=== PATIENT | male | born 1945 | race Caucasian/White ===

== ENCOUNTER → 2018-03-12 | Outpatient (CLI) | payer MEDICARE ==
[~2018-03-12] VITALS: Ht 175.3 cm; Wt 76.7 kg
[~2018-03-12] MED LIST: ACET-66 PO; AMLO5TAB2 PO; ASPI-891 PO; CLEARLAX PO; COQ10 PO; CYCL10TA7 PO; FERR324T4 PO; FISH1CAP63 PO; FLUTICASON PROP NASAL; HYDR-4064 PO; LEVO88TA7 PO; LORA10TA7 PO; MAGN400C PO; MAGNESIUM PO; METO25TA6 PO; MULTIVITAMIN PO; NITR0.4T50 SL; NORT25CA3 PO; OMEG1CAP67 PO; OMEP20TA25 PO; RANO500T2 PO; REGADENOSON 0.4 MG/5 ML PF SYG IVP SCH; SIMV80TA7 PO; TERA2CAP4 PO
== END | disposition home or self-care (01) ==
LOC: SHCH 08:08
PROVIDERS: ATTEND Internal Medicine Cardiovascular Disease
DX: R07.9 Chest pain, unspecified (principal); Z95.1 Presence of aortocoronary bypass graft
CPT/HCPCS: 78452; 93017; 96374; A9500 ×2; J2785

== ENCOUNTER 2018-03-19 05:39 | Inpatient (IN) | payer MEDICARE ==
[2018-03-15 10:30] VITALS: BP 118/74
[2018-03-15 10:33] LABS: BASOPHILS % (AUTO) 0.3 % (0.0-5.0); EOSINOPHILS % (AUTO) 2.5 % (0.0-8.0); HEMATOCRIT 39.6 % (42-54); LYMPHOCYTES % (AUTO) 16.1 % (21.0-51.0); MEAN CORPUSCULAR HEMOGLOBIN 32.5 pg (27.0-33.0); MEAN CORPUSCULAR HGB CONC 34.4 g/dL (32.0-36.0); MEAN CORPUSCULAR VOLUME 94.5 fL (79-99); NEUTROPHILS % (AUTO) 73.1 % (40.0-77.0); PLATELET COUNT (AUTO) 279 K/uL (130-400); RED CELL DISTRIBUTION WIDTH 13.1 % (11.0-15.5); WHITE BLOOD COUNT (AUTO) 7.1 K/uL (4.8-10.8)
[2018-03-15 10:43] LABS: CREATININE 1.2 mg/dL (0.5-1.5); POTASSIUM 4.8 mmol/L (3.5-5.1)
[2018-03-16] MEDS: CLINDAMYCIN 900 MG/D5% WATER 50 ML IV SCH (12:45)
[2018-03-19] VITALS (22 sets, daily range): BP systolic 81–114; BP diastolic 46–72
[~2018-03-19] VITALS: Ht 172.7 cm; Wt 76.3 kg
[~2018-03-19 05:39] MED LIST changes: -FISH1CAP63 PO; -MAGN400C PO; -REGADENOSON 0.4 MG/5 ML PF SYG IVP SCH
[2018-03-19] MEDS: CLINDAMYCIN 900 MG/D5% WATER 50 ML IV SCH ×2 (06:00→07:43)
[2018-03-19] MEDS ORDERED: LACTATED RINGERS 1000ML 1,000 ML IV ONE (06:24)
[2018-03-19] MEDS ORDERED: DURAMORPH PF1 MG/ML 10ML AMP IV ONE (06:33)
[2018-03-19] MEDS ORDERED: THROMBIN-JMI 20000 UNIT KIT TP ONE (06:34)
[2018-03-19] MEDS ORDERED: BACITRACIN 50,000 UNIT VIAL ONE (06:34)
[2018-03-19] MEDS ORDERED: BUPIVACAINE/PF 0.25% 30ML VIAL IJ ONE (06:50)
[2018-03-19] MEDS ORDERED: EPINEPHRINE 1 MG/ML AMPULE ONE (06:50)
[2018-03-19] MEDS ORDERED: NEOSTIGMINE 5MG/5ML SYR IV ONE (07:01)
[2018-03-19] MEDS ORDERED: ONDANSETRON HCL 4 MG/2 ML VIAL ONE ×2 (07:01→08:42)
[2018-03-19] MEDS ORDERED: DEXAMETHASONE SOD PHOSPHATE 10MG/ML 1ML VIAL ONE ×2 (07:01→08:42)
[2018-03-19] MEDS ORDERED: GLYCOPYRROLATE 0.2 MG/ML 5 ML VIAL ONE (07:01)
[2018-03-19] MEDS ORDERED: LIDOCAINE PF 2% 5ML ABBOJECT ONE (07:01)
[2018-03-19] MEDS ORDERED: PROPOFOL 10 MG/ML 20ML VIAL IV ONE (07:03)
[2018-03-19] MEDS ORDERED: MIDAZOLAM HCL 1 MG/ML 2ML VIAL ONE (07:03)
[2018-03-19] MEDS ORDERED: FENTANYL CITRATE PF 50 MCG/1 ML 2ML VIAL ONE ×2 (07:04→11:47)
[2018-03-19] MEDS ORDERED: MAGN400C PO (07:16)
[2018-03-19] MEDS ORDERED: SUB TO ALBUTEROL 2.5MG/3ML NEBULES PER P&T IH ONE (08:08)
[2018-03-19] MEDS ORDERED: PHENYLEPHRINE HCL 10 MG/ML 1ML VIAL IV ONE (08:11)
[2018-03-19] MEDS ORDERED: ROCURONIUM BROMIDE 10MG/1ML 5ML VL ONE (08:36)
[2018-03-19] MEDS ORDERED: SUCCINYLCHOLINE CHLORIDE 20 MG/ML 10 ML VIAL ONE (08:36)
[2018-03-19] MEDS ORDERED: METOCLOPRAMIDE 10 MG/2 ML VIAL ONE (08:41)
[2018-03-19] MEDS ORDERED: LIDOCAINE HCL 4% LTA SOL 4 ML VIAL ONE (08:42)
[2018-03-19] MEDS ORDERED: EPHEDRINE SULFATE 50 MG/ML AMPULE ONE ×3 (08:44→14:07)
[2018-03-19] MEDS ORDERED: ARTIFICIAL TEARS 3.5 GM OINTMENT ONE (08:48)
[2018-03-19] MEDS ORDERED: LIDOCAINE HCL 2% JELLY 5 ML ONE (08:48)
[2018-03-19] MEDS ORDERED: GENTAMICIN SULFATE 80 MG/2 ML VIAL ONE (10:39)
[2018-03-19] MEDS: DEXAMETHASONE SOD PHOSPHATE 4 MG/ML 1ML VIAL IVP SCH ×3 (12:45→23:44)
[2018-03-19] MEDS ORDERED: HYDROCODONE/ACETAMINOPHEN 5/325 MG TAB PO PRN (12:45)
[2018-03-19] MEDS ORDERED: PROMETHAZINE HCL 25 MG/ML 1ML AMPULE IM PRN (12:45)
[2018-03-19] MEDS ORDERED: NITROGLYCERIN 0.4 MG SL TAB SL PRN (12:45)
[2018-03-19] MEDS ORDERED: CLINDAMYCIN 900 MG/D5% WATER 50 ML IV SCH (12:45)
[2018-03-19] MEDS ORDERED: MORPHINE SULFATE 2 MG/ML 1ML SYG IVP PRN (12:45)
[2018-03-19] MEDS ORDERED: SODIUM CHLORIDE 0.9% 10 ML VIAL IVP PRN (12:45)
[2018-03-19] MEDS: FERROUS SULFATE 325 MG TABLET.DR PO SCH ×2 (14:00→20:22)
[2018-03-19] MEDS: HYDROCODONE/ACETAMINOPHEN 7.5/325 MG TAB PO SCH ×2 (14:00→20:21)
[2018-03-19] MEDS: LACTATED RINGERS 1000ML 1,000 ML IV SCH (15:00)
[2018-03-19] MEDS ORDERED: CLINDAMYCIN 900 MG/D5% WATER 50 ML IV ONE (18:00)
[2018-03-19] MEDS: RANOLAZINE 500 MG TAB.SR.12H PO SCH (20:21)
[2018-03-19] MEDS: CYCLOBENZAPRINE HCL 10 MG TABLET PO SCH (20:21)
[2018-03-19] MEDS: ACETAMINOPHEN EXTRA STRENGTH 500 MG TABLET PO SCH (20:22)
[2018-03-19] MEDS: MAGNESIUM OXIDE 400 MG TABLET PO SCH (20:22)
[2018-03-19] MEDS: METOPROLOL TARTRATE 25 MG TAB PO SCH (20:25)
[2018-03-19] MEDS ORDERED: ATORVASTATIN CALCIUM 40 MG TABLET PO SCH (21:00)
[2018-03-19] MEDS ORDERED: NORTRIPTYLINE HCL 25 MG CAPSULE PO SCH (21:00)
[2018-03-19] MEDS ORDERED: TERAZOSIN HCL 2 MG CAPSULE PO SCH (21:00)
[2018-03-20 00:41] VITALS: BP 121/66
[2018-03-20] MEDS: LACTATED RINGERS 1000ML 1,000 ML IV SCH (01:53)
[2018-03-20 04:00] VITALS: BP 111/55
[2018-03-20] MEDS ORDERED: LEVOTHYROXINE 88 MCG TABLET PO SCH (06:30)
[2018-03-20 08:54] VITALS: BP 116/68
[2018-03-20] MEDS ORDERED: PANTOPRAZOLE SODIUM 40 MG TABLET.DR PO SCH (09:00)
[2018-03-20] MEDS ORDERED: CLEARLAX PO SCH (09:00)
[2018-03-20] MEDS: ACETAMINOPHEN EXTRA STRENGTH 500 MG TABLET PO SCH (09:00)
[2018-03-20] MEDS ORDERED: MULTIVITAMIN TABLET PO SCH (09:00)
[2018-03-20] MEDS: HYDROCODONE/ACETAMINOPHEN 7.5/325 MG TAB PO SCH (09:00)
[2018-03-20] MEDS: FERROUS SULFATE 325 MG TABLET.DR PO SCH (09:00)
[2018-03-20] MEDS ORDERED: FISH OIL 1000 MG/CAP PO SCH (09:00)
[2018-03-20] MEDS: CYCLOBENZAPRINE HCL 10 MG TABLET PO SCH (09:00)
[2018-03-20] MEDS: RANOLAZINE 500 MG TAB.SR.12H PO SCH (09:00)
[2018-03-20] MEDS: MAGNESIUM OXIDE 400 MG TABLET PO SCH (09:00)
[2018-03-20] MEDS ORDERED: LORATADINE 10 MG TABLET PO SCH (09:00)
[2018-03-20] MEDS ORDERED: COQ10 PO SCH (09:00)
[2018-03-20] MEDS ORDERED: ASPIRIN 325MG EC TAB 325 MG TABLET.DR PO SCH (09:00)
[2018-03-20] MEDS ORDERED: FLUTICASONE PROPIONATE 50MCG/SPRAY 16 GM BOTTLE EN SCH (09:00)
[2018-03-20] MEDS: METOPROLOL TARTRATE 25 MG TAB PO SCH (09:00)
[2018-03-20] MEDS ORDERED: AMLODIPINE BESYLATE 5 MG TAB PO SCH (09:00)
== END 2018-03-20 11:56 | disposition home or self-care (01) | DRG 520 ==
LOC: DAHIP 05:39 → 4AH 12:58
PROVIDERS: ADMIT Neurological Surgery; ATTEND Neurological Surgery
PROC: 01NB0ZZ Release Lumbar Nerve, Open Approach (ICD-10-PCS; principal; 2018-03-19 07:30)
PROC: 00NY0ZZ Release Lumbar Spinal Cord, Open Approach (ICD-10-PCS; 2018-03-19 07:30)
PROC: 4A11X4G Monitoring of Peripheral Nervous Electrical Activity, Intraoperative, External Approach (ICD-10-PCS; 2018-03-19 07:30)
DX: M48.061 Spinal stenosis, lumbar region without neurogenic claudication (principal); I10 Essential (primary) hypertension; I25.10 Atherosclerotic heart disease of native coronary artery without angina pectoris; M19.90 Unspecified osteoarthritis, unspecified site; F41.9 Anxiety disorder, unspecified; E03.9 Hypothyroidism, unspecified; Z88.0 Allergy status to penicillin; Z95.1 Presence of aortocoronary bypass graft; Z98.1 Arthrodesis status; I25.2 Old myocardial infarction
CPT/HCPCS: 36415; 72020; 80048; 85025; 88304; A4344; J0171; J0330; J1100; J1580; J2001; J2250; J2274; J2370; J2405; J2704; J2710; J2765; J3010; J3490; J7120